=== PATIENT | female | born 1995 | race Caucasian/White ===

== ENCOUNTER 2019-04-03 08:11 | Emergency (ER) | payer OTHER, SELFPAY ==
--- NOTE | 2019-04-03 08:13 | ED.GENADULT ---
HPI - General Adult General Chief complaint: Upper Respiratory Infection Stated complaint: Sore Throat Time Seen by Provider: 04/03/19 08:13 Source: patient Mode of arrival: ambulatory Limitations: no limitations History of Present Illness HPI narrative: 23-year-old female patient presents the [facility] with complaints of cold symptoms and sore throat for the past week and half. Patient states that yesterday she noticed that her left eye was also starting to itch and get some red as well as having some gunk . Coming from the left eye. Patient denies any fevers that she is aware of. Patient denies any ear pain but states she has had a little bit of a stuffy and runny nose, sore throat denies any coughing, chest pain or shortness of breath. Patient denies any abdominal pain, nausea, vomiting or diarrhea. Patient states that she was taking [id number] Mucinex for her symptoms however she states that it was causing her to puke up mucus so she stopped taking it. Patient states otherwise she is just been using hot tea. Patient states that she did get a flu shot this year. Denies smoking cigarettes but does admit to vaping and smoking marijuana every once in a while. Patient denies or breast-feeding at this time. Related Data Allergies Allergy/AdvReac Type Severity Reaction Status Date / Time Penicillins Allergy Other Verified 04/03/19 08:45 Review of Systems Review of Systems: Narrative: CONSTITUTIONAL: Denies fever, chills, or sweats. EYES: Denies visual changes, positive left eye redness and discharge. ENT: Positive rhinorrhea, congestion, sore throat, denies otalgia. CARDIOVASCULAR: Denies chest pain, palpitations, or edema. RESPIRATORY: Denies cough or dyspnea. GASTROINTESTINAL: Denies abdominal pain, nausea, vomiting, or diarrhea. GENITOURINARY: Denies dysuria or hematuria. SKIN: Denies rash or itching. MUSCULOSKELETAL: Denies back pain, joint pain, or myalgia. NEUROLOGIC: Denies headache, numbness, or weakness. PSYCHIATRIC: Denies anxiety or depression. PMFSH Comments At the time of my signature I agree with nursing past medical history, surgical, social, and family history. There is no relevant family history pertinent to the presenting complaint. Exam Narrative: Exam Narrative: GENERAL: Well-appearing, well-nourished, and in no acute distress. HEAD: Normocephalic, atraumatic. No tenderness noted to frontal maxillary sinuses on palpation. EYES: PERRLA and EOM intact without limitation or complaint of pain, no periorbital soft tissue swelling ,no erythema, warmth or tenderness noted, no obvious deformity. No crusting or swelling.no tearing or draining.No photophobia. No nystagmus No FB or lesion on lid eversion. Corneas grossly clear, no obvious FB or hyphens/hypopyon. Erythemic injection to sclera on the left eye. Lids and lashes clear. ENT: Nares with erythema and edema noted bilaterally, no rhinorrhea or epistaxis. Mucous membranes moist. Posterior pharynx with slight erythema but no tonsil enlargement no exudates or lesions present. NECK: Supple. No lymphadenopathy CHEST: Clear to auscultation. No respiratory distress. Patient able talk in clear complete sentences. No tripoding noted. HEART: Regular rate and rhythm. No murmur heard. Normal peripheral pulses. ABDOMEN: Soft, nontender, nondistended, normal active bowel sounds. EXTREMITIES: Normal range of motion. No edema. SKIN: Warm, dry, no rash. NEURO: No focal deficits. Alert and oriented x3. Course Reevaluation(s) Reevaluation #1: Notify patient that her bedside strep test today is negative. Discussed with her that this is most likely viral and will take some time to run its course. Discussed with her as far as the sore throat she can take hot tea and honey, warm salt water gargles and use a humidifier in her room to help alleviate the throat pain as well as take Tylenol and ibuprofen. Discussed with her that we will also place her on an antihistamine a
[2019-04-03 08:24] VITALS: BP 139/89; PULSE 95; RESP 16; TEMP 36.4; O2SAT 100
== END 2019-04-03 08:56 | disposition home or self-care (01) ==
PROVIDERS: Emergency Provider Nurse Practitioner Family
DX: J06.9 Acute upper respiratory infection, unspecified (principal); H10.32 Unspecified acute conjunctivitis, left eye; J02.9 Acute pharyngitis, unspecified
CPT/HCPCS: 87081; 87880; 99203; G0463

== ENCOUNTER 2021-08-11 11:18 | Emergency (ER) | payer OTHER, SELFPAY ==
[2021-08-11 11:30] VITALS: BP 127/84; PULSE 94; RESP 20; TEMP 36.9; O2SAT 100
--- NOTE | 2021-08-11 11:50 | ED.DENTAL ---
HPI - Dental/Oral General Chief complaint: Dental/Oral Stated complaint: Gum Pain Time Seen by Provider: 08/11/21 11:51 Source: patient, RN notes reviewed and old records reviewed Mode of arrival: ambulatory Limitations: no limitations History of Present Illness HPI Narrative: 26-year-old female who is 7 weeks approximately complains of left lower dental pain. Patient states her wisdom tooth have been removed. That post her molar has been repaired twice. States she tried getting in with her dentist but they were out for the week. Denies fevers. MD Complaint: tooth pain Teeth map: 1. Surrounding tissue erythema, swelling Related Data Home Medications Medication Instructions Recorded Confirmed 1 tab-cap PO DAILY 08/11/21 08/11/21 Allergies Allergy/AdvReac Type Severity Reaction Status Date / Time Penicillins Allergy Other Verified 08/11/21 11:37 Review of Systems Review of Systems: All systems reviewed & are unremarkable except as noted in HPI and below Constitutional: Constitutional: Reports no additional constitutional complaints, Denies chills and Denies fever(s) Eyes: Eyes: Reports no additional eye complaints ENT: Reports as per HPI Comments: Dental pain, left lower Cardiovascular: Cardiovascular: Reports no additional cardiovascular complaints, Denies chest pain and Denies dyspnea Respiratory: Respiratory: Reports no additional respiratory complaints, Denies cough and Denies dyspnea Musculoskeletal: Musculoskeletal: Reports no additional musculoskeletal complaints Integumentary/Breasts: Skin/Breast: Reports system reviewed and no additional complaints, except as docu Neurologic: Reports system reviewed and no additional complaints, except as documented Psychiatric: Psychiatric: Reports no additional psychiatric complaints Allergic/Immunologic: Allergic/Immunologic: Reports no additional allergic/immunologic complaints [facility] Past Medical History Medical History (Updated 08/11/21 @ 17:31 by Dee Raines APRN) Patient denies medical problems Surgical History Surgical History (Updated 08/11/21 @ 17:31 by Dee Raines APRN) No history of previous surgery Social History Social History (Updated 08/11/21 @ 17:32 by Dee Raines APRN) Living arrangements: with family Gender identity (if verbalized by the patient): Female Comments At the time of my signature, I reviewed and agree with the nursing past medical, surgical, social, and family history. There is no relevant family history pertinent to the patient complaint. Exam Const: General: healthy appearing, no acute distress and alert Nutritional Appearance: well nourished Orientation/consciousness: patient oriented x3 Limitations: no limitations HENMT: Head: normal to inspection Ears: external ears normal, TM's normal bilaterally and EAC's normal General nose exam: Normal external nose present and Normal nasal mucous membranes and turbinates present Face and sinus: normal facial exam Mouth: Yes Normal oral and palatal mucosa present Teeth and gingiva: abnormal tooth and associated gingiva lower left third molar tender, with associated gingival edema and with associated gingival fluctuance (Posterior to the tooth, tooth has had multiple caries and repair) Throat: posterior oropharynx normal, tonsils normal and uvula midline Eyes: Conjunctivae: conjunctivae normal Pupils: Equal, round and reactive pupils present Neck: Neck: normal visual inspection, no lymphadenopathy and no meningeal signs Chest: Chest palpation & inspection: normal inspection of the chest Resp: Effort & Inspection: normal respiratory effort Auscultation: clear to auscultation bilaterally Cardio: Rate: regular rate Rhythm: regular rhythm Skin: General skin exam: normal color Rashes: no rashes Wounds: no wounds Neuro: General: patient oriented x3, moves all extremities, no meningeal signs and no focal motor deficits Cr
== END 2021-08-11 12:06 | disposition home or self-care (01) ==
PROVIDERS: Emergency Provider Nurse Practitioner; PCP Student in an Organized Health Care Education/Training Program
DX: O99.611 Diseases of the digestive system complicating pregnancy, first trimester (principal); Z3A.01 Less than 8 weeks gestation of pregnancy; K04.7 Periapical abscess without sinus
CPT/HCPCS: 99213; G0463

== ENCOUNTER 2021-10-17 16:11 | Outpatient (CLI) | payer OTHER, SELFPAY ==
[2021-10-17 16:45] LABS: Basophils Percent Auto 0.3 % (0.2-1.2); Eosinophils Absolute Auto 0.2 K/mm3 (0-0.3); Eosinophils Percent Auto 1.7 % (0-4.4); Hematocrit 37.5 % (37.0-47.0); Hemoglobin 12.7 g/dL (12.0-15.0); Immature Granulocyte Absolute 0.05 K/mm3 (0.00-0.031); Immature Granulocyte Percent A 0.5 % (0-0.5); Lymphocytes Absolute Auto 1.74 K/mm3 (0.9-3.2); Lymphocytes Percent Auto 18.3 % (18.3-44.2); Mean Corpuscular HGB Conc 33.9 g/dl (32-36); Mean Corpuscular Hemoglobin 32.2 pg (26-34); Mean Corpuscular Volume 94.9 fl (80-100); Mean Platelet Volume 10.8 fl (7.4-10.4); Monocytes Absolute Auto 0.5 K/mm3 (0.1-0.6); Monocytes Percent Auto 4.9 % (2.6-8.5); Neutrophils Absolute Auto 7.1 K/mm3 (1.3-6.7); Neutrophils Percent Auto 74.3 % (45.5-73.1); Platelet Count Result 217 k/mm3 (150-375); Red Blood Count 3.95 M/mm3 (4.2-5.4); Red Cell Distribution Width 12.9 % (11.5-14.5); White Blood Count 9.5 K/mm3 (4.5-10.0)
[2021-10-17 17:24] LABS: HIV 1/2 Ab P24 Ag Result Negative (Negative)
[2021-10-17 18:22] LABS: Hepatitis B Surface Antigen Negative (Negative); Rubella IgG Antibody 2.4 IU/ML
[2021-10-20 07:51] LABS: Rapid Plasma Reagin Non-Reactive (NonReactive)
[2021-10-22 13:32] LABS: CMV IgG Antibody <0.60 U/mL (<0.60)
== END 2021-10-17 16:12 | disposition home or self-care (01) ==
LOC: ANHLAB 16:13
PROVIDERS: PCP Student in an Organized Health Care Education/Training Program; Visit Provider Obstetrics & Gynecology
DX: N94.89 Other specified conditions associated with female genital organs and menstrual cycle (principal)
CPT/HCPCS: 36415; 84702; 85025; 86592; 86644; 86703; 86747; 86762; 86787; 86850; 86900; 86901; 87086; 87088; 87340; G0432

== ENCOUNTER 2022-01-27 08:16 | Outpatient (CLI) | payer OTHER, SELFPAY ==
[2022-01-27 09:53] LABS: Basophils Percent Auto 0.4 % (0.2-1.2); Eosinophils Absolute Auto 0.1 K/mm3 (0-0.3); Eosinophils Percent Auto 1.1 % (0-4.4); Hematocrit 36.6 % (37.0-47.0); Hemoglobin 12.2 g/dL (12.0-15.0); Immature Granulocyte Absolute 0.06 K/mm3 (0.00-0.031); Immature Granulocyte Percent A 0.7 % (0-0.5); Lymphocytes Absolute Auto 1.34 K/mm3 (0.9-3.2); Lymphocytes Percent Auto 14.9 % (18.3-44.2); Mean Corpuscular HGB Conc 33.3 g/dl (32-36); Mean Corpuscular Hemoglobin 30.8 pg (26-34); Mean Corpuscular Volume 92.4 fl (80-100); Mean Platelet Volume 10.9 fl (7.4-10.4); Monocytes Absolute Auto 0.4 K/mm3 (0.1-0.6); Neutrophils Absolute Auto 7.1 K/mm3 (1.3-6.7); Neutrophils Percent Auto 78.9 % (45.5-73.1); Platelet Count Result 178 k/mm3 (150-375); Red Blood Count 3.96 M/mm3 (4.2-5.4); Red Cell Distribution Width 12.9 % (11.5-14.5)
[2022-01-27 10:04] LABS: Glucose 1 Hour PP 50gm Dose 106 mg/dL
== END 2022-01-27 08:17 | disposition home or self-care (01) ==
LOC: ANHLAB 08:17
PROVIDERS: PCP Student in an Organized Health Care Education/Training Program; Visit Provider Obstetrics & Gynecology
DX: Z34.90 Encounter for supervision of normal pregnancy, unspecified, unspecified trimester (principal)
CPT/HCPCS: 36415; 82947; 85025

== ENCOUNTER 2022-02-13 10:51 | Outpatient (RCR) | payer OTHER, SELFPAY ==
[2022-02-13 11:41] VITALS: BP 131/84; PULSE 109
== END 2022-04-04 07:46 | disposition home or self-care (01) ==
LOC: ANHOBOP 10:51
PROVIDERS: PCP Student in an Organized Health Care Education/Training Program; Visit Provider Obstetrics & Gynecology
DX: O36.8130 Decreased fetal movements, third trimester, not applicable or unspecified (principal); Z3A.35 35 weeks gestation of pregnancy
CPT/HCPCS: 59025

== ENCOUNTER 2022-03-15 14:38 | Observation (INO) | payer OTHER, SELFPAY ==
--- NOTE | 2022-03-15 17:14 | OBADM ---
This patient, Selina Mariee, admitted to the OB room Labor/Delivery/Recovery 107 for observation. Patient/family oriented to hospital policies and general routines including ID bracelet, bed and alarms, visiting hours, pain management, procedures, bathroom and other care routines, personal items, smoking policy, room service/diet, and visiting hours. Patient/Family are encouraged to report perceived risks to care and to ask questions if they do not understand what they are told or what they should do.
--- NOTE | 2022-03-17 10:56 | PM.OBTRLD ---
OB - Triage/Final Diagnosis Visit Information Date of evaluation: 03/15/22 Reason for evaluation: decreased movement Comments/Additional reasons for admission: I have assessed the risk for this patient, Selina Mariee, and determined that she would benefit from observation care.
== END 2022-03-15 17:24 | disposition home or self-care (01) ==
PROVIDERS: Admitting Provider Student in an Organized Health Care Education/Training Program; PCP Student in an Organized Health Care Education/Training Program; Visit Provider Student in an Organized Health Care Education/Training Program
DX: O36.8130 Decreased fetal movements, third trimester, not applicable or unspecified (principal); Z3A.39 39 weeks gestation of pregnancy
CPT/HCPCS: G0378; G0379

== ENCOUNTER 2022-03-18 01:33 | Inpatient (IN) | payer OTHER, SELFPAY ==
[2022-03-18] VITALS (142 sets, daily range): BP systolic 102–154; BP diastolic 66–120; PULSE 56–142; RESP 16; TEMP 36.1–36.9; O2SAT 81–100; BMI 27.0
--- NOTE | 2022-03-18 02:07 | LDADM ---
This patient, Selina Mariee, was admitted to Labor/Delivery/Recovery 105 on 03/18/22 at 01:33. Plans for labor, pain management and were discussed with patient. Patient/family oriented to hospital policies and general routines including ID bracelet, bed and alarms, visiting hours, pain management, procedures, bathroom and other care routines, personal items, smoking policy, room service/diet and guest tray routines, infant security routines, and visiting hours. Patient/Family are encouraged to report perceived risks to care and to ask questions if they do not understand what they are told or what they should do. See OBIX for further documentation.
[2022-03-18 02:25] LABS: Basophils Percent Auto 0.2 % (0.2-1.2); Eosinophils Absolute Auto 0.1 K/mm3 (0-0.3); Eosinophils Percent Auto 0.9 % (0-4.4); Hematocrit 34.7 % (37.0-47.0); Hemoglobin 11.7 g/dL (12.0-15.0); Immature Granulocyte Absolute 0.06 K/mm3 (0.00-0.031); Immature Granulocyte Percent A 0.6 % (0-0.5); Lymphocytes Percent Auto 20.8 % (18.3-44.2); Mean Corpuscular HGB Conc 33.7 g/dl (32-36); Mean Corpuscular Hemoglobin 30.6 pg (26-34); Mean Corpuscular Volume 90.8 fl (80-100); Mean Platelet Volume 11.4 fl (7.4-10.4); Monocytes Absolute Auto 0.6 K/mm3 (0.1-0.6); Monocytes Percent Auto 5.6 % (2.6-8.5); Neutrophils Absolute Auto 7.3 K/mm3 (1.3-6.7); Neutrophils Percent Auto 71.9 % (45.5-73.1); Platelet Count Result 205 k/mm3 (150-375); Red Blood Count 3.82 M/mm3 (4.2-5.4); Red Cell Distribution Width 13.7 % (11.5-14.5); White Blood Count 10.1 K/mm3 (4.5-10.0)
[2022-03-18] MEDS: LACTATED RINGERS 1,000 ML 125 ML IV CONT ×3 (03:52→07:29)
--- NOTE | 2022-03-18 04:11 | WPDANESEPP ---
Anes - Eval Pre Procedure Procedure: labor epidural Date/Time: 03/18/22 04:11 Pre Op Diagnosis: SROM Patient Data Age: 26 Gender: F Height: 1.8 m Weight: 88 kg Last Vital Signs Temp 36.1 C L 03/18/22 02:19 Pulse 73 03/18/22 04:01 BP 140/92 H 03/18/22 04:01 Pulse Ox 99 03/18/22 04:08 O2 Del Method Room Air 03/18/22 02:06 Allergies Allergy/AdvReac Type Severity Reaction Status Date / Time Penicillins Allergy Unknown Other Verified 03/16/22 14:10 Home Medications Medication Instructions Recorded Confirmed Type 1 tab-cap PO DAILY 08/11/21 03/16/22 History Laboratory Tests 03/18/22 03/18/22 03/18/22 02:17 02:17 02:17 WBC 10.1 K/mm3 H K/mm3 (4.5-10.0) RBC 3.82 M/mm3 L M/mm3 (4.2-5.4) Hgb 11.7 g/dL L g/dL (12.0-15.0) Hct 34.7 % L % (37.0-47.0) MCV 90.8 fl fl (80-100) MCH 30.6 pg pg (26-34) MCHC 33.7 g/dl g/dl (32-36) RDW 13.7 % % (11.5-14.5) Plt Count 205 k/mm3 k/mm3 (150-375) MPV 11.4 fl H fl (7.4-10.4) Immature Gran % (Auto) 0.6 % H % (0-0.5) Neut % (Auto) 71.9 % % (45.5-73.1) Lymph % (Auto) 20.8 % % (18.3-44.2) Chester % (Auto) 5.6 % % (2.6-8.5) Eos % (Auto) 0.9 % % (0-4.4) Baso % (Auto) 0.2 % % (0.2-1.2) Lymph # (Auto) 2.10 K/mm3 K/mm3 (0.9-3.2) Chester # (Auto) 0.6 K/mm3 K/mm3 (0.1-0.6) Eos # (Auto) 0.1 K/mm3 K/mm3 (0-0.3) Baso # (Auto) 0.0 K/mm3 K/mm3 (0.0-0.1) Abs Immat Gran (auto) 0.06 K/mm3 H K/mm3 (0.00-0.031) Absolute Neuts (auto) 7.3 K/mm3 H K/mm3 (1.3-6.7) Absolute Nucleated RBC 0.0 K/mm3 K/mm3 (0.0-0.012) Nucleated RBC % 0.0 % % (0.0-0.2) RPR Pending Blood Type A Positive Antibody Screen Negative Patient hx anesthesia problems: none Family hx anesthesia problems: none Results Review: All pre-operative results and documents have been reviewed as part of the pre-operative evaluation. [facility] Past Medical History Medical History Patient denies medical problems Suppression of menstruation Surgical History Surgical History No history of previous surgery Family History Family History Mother Hypertension Father Hypertension Grandparent Hypertension Grandparent Hypertension Social History Social History Smoking status: Never smoker Tobacco type: e-cigarettes/vaping Second hand tobacco smoke exposure: No Alcohol intake: never Substance use: never Substance use type: does not use Lack of Transportation: No Lack of Food: Never True Current Housing: I Have Housing Concerned About Future Housing: No Difficulty Paying Gas/Electric Bills: No Difficulty Paying for Meds: No Currently Unemployed: No Education: Bachelor's Degree Difficulty w/ Childcare or Family Care: No Additional living arrangements comments: Additional occupation/education comments: student Gender identity (if verbalized by the patient): Female Sexual Orientation (if Verbalized by the Patient): Straight or Heterosexual Spiritual care concerns: No Exam Day of Procedure 03/18/22 04:11 Patient weight: overweight Heart: regular rate and rhythm Lungs: normal air movement Airway: Mallampati scale Neurological: alert and oriented
[2022-03-18] MEDS: OXYTOCIN 30 UNITS/NS 500 ML 30 UNITS/500 ML BAG IV CONT (05:34)
[2022-03-18] MEDS: OXYTOCIN 30 UNITS/NS 500 ML 30 UNITS/500 ML BAG 125 UNITS IV CONT (10:18)
--- NOTE | 2022-03-18 10:44 | WPDHPUPDATE1 ---
History and Physical Update Update Date/Time: 03/18/22 10:44 History and Physical has been reviewed, including an updated exam of the patient. There are NO changes in the patient's condition. Risks, benefits, and alternatives have been discussed and questions answered. Patient agrees to proceed with procedure.
--- NOTE | 2022-03-18 10:44 | WPDOBADMIT ---
Obstetrics - Admit Note Admission Note: record reviewed. No pertinent additions to the history and/or any subsequent changes in the physical findings that are not consistent with the expected course of the were found. Additions to the history and/or subsequent changes in the physical findings follow. None.
--- NOTE | 2022-03-18 10:44 | PM.OBPRVD ---
OB - Delivery Note Procedure Delivery augmentation: Pitocin Delivery monitor: External FHT and External Uterine Route of delivery: Episiotomy description: None Laceration Description: Periurethral Delivery repair: chromic Specimen: No Quantitative Blood Loss (ml): 350 Anesthesia type: Epidural Disposition: Floor Complications: none Narrative: patient prepped and draped in usual manner for this procedure. Maternal expulsive efforts readily delivered vertex over intact perineum. Rest of baby was delivered without difficulty cord was clamped and cut and placenta delivered spontaneously. Cervix vagina vulva were inspected with a right periurethral laceration which was oozing and rendered hemostatic with a [id number] of 2-0 chromic suture. At this point the procedure was considered terminated in the immediate postoperative condition of mother and baby were both excellent. Baby Weeks of gestation at delivery: 39 Infant gender: Female Weight (pounds): 7 Weight (ounces): 7 presentation: vertex Placenta delivery description: Spontaneous Cord Vessel Description: 3 Vessels score one minute: 9 score five minutes: 9 AMG Delivery Billing Delivery Delivery: Delivery Charge
[2022-03-18] MEDS: WITCH HAZEL 40 PADS 1 PAD TOPICAL (11:49)
[2022-03-18] MEDS: BENZOCAINE 20% AER SPR (*SP) 56 GM CAN 1 SPRAY TOPICAL (11:49)
[2022-03-18 12:38] LABS: Rapid Plasma Reagin Non-Reactive (NonReactive)
--- NOTE | 2022-03-18 13:13 | PC.NURSE ---
[id number] Introductions were made, then consulted with patient to assess needs related to . Mother led the conversation with her?plans to feed?her infant and the?experience so far. Resources provided for inpatient (call light) and outpatient services with office number on the feeding sheet and mom/baby guide. Mother voiced understanding of information, will call if there is a request for assistance and was receptive to learning and practicing skin to skin with stimulating with massage touch. Mother states she will call if infant doesn't wake to breastfeed or is painful.
--- NOTE | 2022-03-18 14:07 | PC.NURSE ---
Patient transferred to post room #278 via (w/c). Support person present. Oriented to unit, room, information board, rooming in, admission packet and security measures. Patient verbalizes understanding.
--- NOTE | 2022-03-18 16:43 | PC.NURSE ---
[id number] Introductions were made, then consulted with patient to assess needs related to . Mother works well with her with encouragement and education. Encouraged understanding of the benefits of skin to skin (demonstrating unwrapping infant and placing upright on her chest), stimulating with massage touch, changing positions to encourage wakefulness, how to watch for early feeding cues, responsive feeding, feeding on demand (aiming for 8-12 times in 24 hours, about every 2-3 hours), milk production, building/maintaining a milk supply, duration of feeding, signs of adequate intake/output and how to record on the feeding sheet. Mother is demonstrating education. is sleepy and reluctant at this time less than 6 hours old. Reviewed good handwashing when or touching the breast/nipples to prevent infection. Mother was taught to hand express colostrum from her breast and the was encouraged to swallow 1/4 tsp spoon fed colostrum. Infant held the colostrum in he mouth and was gently encouraged and given time to swallow. Resources used to facilitate learning were used with the demonstrating, tool, mom and baby guide. We discussed the difference between a sleepy less than 24 hours old vs the behavior typical of a infant greater than 24 hours. Mother voiced understanding of skin to skin, stimulating with massage touch, responsive feedings, hand expressed colostrum, talking to infant to encourage if it has been 2 -2.5 hours since the start of the last , to call if infant does not latch, or if there is discomfort with . Resources provided for inpatient (using the call light)/outpatient with the office number on the feeding sheet and the mom/baby guide. Parents voiced understanding of information, demonstrated learning and will call if there is a request for assistance. Reported to primary RN.
[2022-03-18] MEDS: ACETAMINOPHEN 325 MG TABLET 650 MG PO (20:00)
[2022-03-19] MEDS: IBUPROFEN 600 MG TABLET PO (04:10)
[2022-03-19 05:21] LABS: Hematocrit 33.6 % (37.0-47.0); Hemoglobin 11.1 g/dL (12.0-15.0)
[2022-03-19 08:00] VITALS: PULSE 81; RESP 16; O2SAT 99
--- NOTE | 2022-03-19 08:09 | PM.OBDSVD ---
DS: Admitting Diagnosis Discharge Date 03/19/2022 Admitting Diagnosis OB - DS: Summary OB Procedures : None OB Procedures Intrapartum: Spontaneous Vag Delivery OB Procedures: : None Time Spent with Patient Time attestation: Total time spent providing and/or coordinating discharge services: DS: Data Data Completed and Pending Labs on day of discharge: Labs from last 24 hours 03/19/22 03/18/22 04:17 02:17 Hgb 11.1 L Hct 33.6 L RPR Non-reactive Discharge Plan Discharge Discharging Clinician: Jackson Trinh Patient Disposition: Home, Self-Care Activity: as tolerated Diet: as tolerated Patient Instructions: Antibiotic Form Stand Alone Forms: General Discharge Information Follow-up/Referrals: Jackson Trinh MD [Physician] - 3 Weeks Discharge Medications: New ibuprofen 600 mg Tablet 600 mg PO Q6H PRN (Reason: Cramping) Qty: 30 0RF Continued 1 tab-cap PO DAILY Date of admission: 03/18/22 01:33 Primary Care Provider: Joao,Angelo Admitting Provider: Jackson Trinh Attending physician on admission: Jackson Trinh Condition: Stable
[2022-03-19 08:10] VITALS: BP 124/81; PULSE 81; RESP 16; TEMP 36.8; O2SAT 99
[2022-03-19] MEDS: ACETAMINOPHEN 325 MG TABLET 650 MG PO (10:30)
[2022-03-19] MEDS: MULTIVIT/MIN/PREN/FOL AC/IRON TABLET 1 TAB PO (10:32)
[2022-03-19] MEDS: MEASLES,MUMPS,RUBELLA VACCINE 0.5 ML VIAL SUB-Q (10:33)
--- NOTE | 2022-03-19 12:37 | PC.NURSE ---
1000-Patient viewed the discharge video Mother & Baby Care, The First Two Weeks . Patient was given the opportunity and encouraged to ask questions. Patient verbalized understanding of information shared and has been given the mother/baby guide for home reference.
--- NOTE | 2022-03-19 15:36 | PC.NURSE ---
[id number] Mother led the conversation with her experience and plan to feed her so far and her ability to independently latch optimally without discomfort. Reminded parents to use good handwashing technique to prevent infection. Mother is feeding appropriately for growth of and understands stimulating to eat if needed. Infant has had appropriate feedings in the last 24 hours meets the outcomes for weight, output and jaundice at this time. Mother states she is confident to continue effectively her infant at home, when to call for assistance and denies any additional assistance or education at this time. Reinforced understanding of milk production, transition of milk, signs of adequate intake, transition of stool, prevention/relief of engorgement, responsive watching for feeding cues, the different methods of stimulating infant to breastfeed 2-3 hours after the start of the last feeding, community resources, medication information reviewed per [facility] and when to call a provider using the resource of the mom and baby guide/[facility] website. Discussed and answered mothers questions. Mother voiced understanding of the education shared. Reported to the primary RN.
[2022-03-20 09:35] VITALS: BP 139/77; PULSE 77; RESP 18; TEMP 36.8; O2SAT 100
== END 2022-03-19 12:35 | disposition home or self-care (01) | DRG 807 ==
LOC: ANHLDR 01:55 → ANHOB2 12:22
PROVIDERS: Admitting Provider Obstetrics & Gynecology; PCP Student in an Organized Health Care Education/Training Program; Visit Provider Obstetrics & Gynecology
DX: O71.82 Other specified trauma to perineum and vulva (principal); Z37.0 Single live birth; Z3A.39 39 weeks gestation of pregnancy
CPT/HCPCS: 36415; 85014; 85018; 85025; 86592; 86850; 86900; 86901; 90710; A9270; J2590; J2795; J7120

== ENCOUNTER 2023-06-09 09:16 | Emergency (ER) | payer OTHER, SELFPAY ==
[2023-06-09 09:40] VITALS: BP 129/85; PULSE 110; RESP 20; TEMP 36.7; O2SAT 100
[2023-06-09 09:42] VITALS: BP 129/85; PULSE 113; RESP 20; TEMP 36.7; O2SAT 100
[2023-06-09] MEDS: SODIUM CHLORIDE 0.9% IV 1,000 ML 999 ML IV CONT (10:12)
[2023-06-09] MEDS: ONDANSETRON INJ 4 MG/2 ML VIAL IV PUSH (10:12)
[2023-06-09 10:19] LABS: Basophils Percent Auto 0.1 % (0.2-1.2); Hematocrit 38.1 % (37.0-47.0); Hemoglobin 13.5 g/dL (12.0-15.0); Immature Granulocyte Absolute 0.04 K/mm3 (0.00-0.031); Immature Granulocyte Percent A 0.4 % (0-0.5); Lymphocytes Absolute Auto 0.41 K/mm3 (0.9-3.2); Lymphocytes Percent Auto 4.1 % (18.3-44.2); Mean Corpuscular HGB Conc 35.4 g/dl (32-36); Mean Corpuscular Volume 90.3 fl (80-100); Mean Platelet Volume 11.1 fl (7.4-10.4); Monocytes Absolute Auto 0.3 K/mm3 (0.1-0.6); Neutrophils Absolute Auto 9.3 K/mm3 (1.3-6.7); Neutrophils Percent Auto 92.4 % (45.5-73.1); Platelet Count Result 192 k/mm3 (150-375); Red Blood Count 4.22 M/mm3 (4.2-5.4); Red Cell Distribution Width 13.2 % (11.5-14.5); White Blood Count 10.1 K/mm3 (4.5-10.0)
--- NOTE | 2023-06-09 10:23 | ED.GENADULT ---
HPI - General Adult General Chief complaint: Nausea/Vomiting/Diarrhea Stated complaint: , need iv fluids Time Seen by Provider: 06/09/23 09:43 History of Present Illness HPI narrative: Patient is a 27-year-old female who presents ER with the eye duration. She has had nausea and vomiting as well as diarrhea worsening over last 3 days. She reports she is not urinating now because of her dehydration. No syncope. No lower abdominal cramping. No vaginal bleeding or vaginal discharge. No dysuria. She has had no antiemetics at home. She is 16 weeks in gestation. She does report that her circuit court magistrate prescribed some antiemetics today that she will order picker/assembler after being evaluated in the ER. Related Data Home Medications Medication Instructions Recorded Confirmed 1 tab-cap PO DAILY 08/11/21 05/18/23 Allergies Allergy/AdvReac Type Severity Reaction Status Date / Time Penicillins Allergy Unknown Other Verified 05/18/23 15:31 Review of Systems Review of Systems: All systems reviewed & are unremarkable except as noted in HPI and below Constitutional: Constitutional: Denies chills, Reports fatigue and Denies fever(s) ENT: Reports system reviewed and no additional complaints, except as documented Cardiovascular: Cardiovascular: Reports no additional cardiovascular complaints Respiratory: Respiratory: Reports no additional respiratory complaints Gastrointestinal: Gastrointestinal: Denies abdominal pain, Reports diarrhea, Reports nausea and Reports vomiting Genitourinary: Genitourinary: Reports no additional female genitourinary complaints [facility] Past Medical History Medical History Patient denies medical problems Suppression of menstruation Surgical History Surgical History No history of previous surgery Family History Family History Mother Hypertension Father Hypertension Grandparent Hypertension Grandparent Hypertension Social History Social History Smoking status: Never smoker Tobacco type: e-cigarettes/vaping Second hand tobacco smoke exposure: No Alcohol intake: never Substance use: former Substance use type: marijuana Other substance usage details: stopped when finding out with 1st child Last use: 06/2021 Do You Feel Safe in your Home?: Yes Lack of Transportation: No Lack of Food: Never True Current Housing: I Have Housing Concerned About Future Housing: No Difficulty Paying Gas/Electric Bills: No Difficulty Paying for Meds: No Currently Unemployed: YES Education: Bachelor's Degree Difficulty w/ Childcare or Family Care: No Living arrangements: other Additional living arrangements comments: Occupation/Education: occupation 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 HEAD: Normocephalic, atraumatic. ENT: Mucous membranes moist. Normal appearing posterior oropharynx. NECK: Supple. CHEST: Clear to auscultation. No respiratory distress. HEART: Tachycardic and regular. Normal peripheral pulses. ABDOMEN: Soft, nontender, nondistended. EXTREMITIES: Normal range of motion. No edema. SKIN: Warm, dry, no rash. NEURO: Alert and oriented x3. PSYCH: Normal mood and affect. Course Course Emergency Course: Labs reassuring. Patient feels improved after IV fluid. Tolerating p.o. without issue. She has antiemetics already prescribed. Discharge. Vital Signs Vital signs: Vital Signs Temperature 98.1 F 06/09/23 09:40
[2023-06-09 10:27] LABS: Alanine Aminotransferase 13 U/L (6-35); Albumin Level 3.8 g/dL (3.5-5.1); Alkaline Phosphatase 51 U/L (38-126); Anion Gap 9 mmol/L (4-12); Aspartate Amino Transferase 17 U/L (14-36); Bilirubin,Total 1.2 mg/dL (0.2-1.3); Blood Urea Nitrogen 12 mg/dL (7-17); Calcium 8.7 mg/dL (8.4-10.2); Carbon Dioxide 16 mmol/L (22-30); Chloride 106 mmol/L (98-107); Estimated CRCL calculation 152 ml/min; Estimated Glomerular Filt Rate > 60; Glucose 121 mg/dL (65-110); Potassium 3.6 mmol/L (3.4-5.0); Sodium 131 mmol/L (137-145)
--- NOTE | 2023-06-09 11:22 | PC.NURSE ---
pt reports improvement of symptoms. IV fluids complete.
[2023-06-09 11:57] VITALS: BP 120/82; PULSE 88; RESP 22; O2SAT 100
--- NOTE | 2023-06-09 12:00 | PC.NURSE ---
Pt given jello, saltines, and clear soda
== END 2023-06-09 12:16 | disposition home or self-care (01) ==
PROVIDERS: Emergency Provider Emergency Medicine; PCP Student in an Organized Health Care Education/Training Program
DX: O21.0 Mild hyperemesis gravidarum (principal); Z3A.16 16 weeks gestation of pregnancy
CPT/HCPCS: 36415; 80053; 85025; 96361; 96374; 99284; J2405; J7030

== ENCOUNTER 2023-08-28 08:39 | Outpatient (CLI) | payer OTHER, SELFPAY ==
[2023-08-28 10:13] LABS: Basophils Percent Auto 0.4 % (0.2-1.2); Eosinophils Percent Auto 0.5 % (0-4.4); Hematocrit 33.4 % (37.0-47.0); Hemoglobin 11.3 g/dL (12.0-15.0); Immature Granulocyte Absolute 0.02 K/mm3 (0.00-0.031); Immature Granulocyte Percent A 0.2 % (0-0.5); Lymphocytes Absolute Auto 1.21 K/mm3 (0.9-3.2); Lymphocytes Percent Auto 14.9 % (18.3-44.2); Mean Corpuscular HGB Conc 33.8 g/dl (32-36); Mean Corpuscular Hemoglobin 32.1 pg (26-34); Mean Corpuscular Volume 94.9 fl (80-100); Mean Platelet Volume 10.6 fl (7.4-10.4); Monocytes Absolute Auto 0.3 K/mm3 (0.1-0.6); Neutrophils Absolute Auto 6.5 K/mm3 (1.3-6.7); Platelet Count Result 164 k/mm3 (150-375); Red Blood Count 3.52 M/mm3 (4.2-5.4); Red Cell Distribution Width 12.8 % (11.5-14.5); White Blood Count 8.1 K/mm3 (4.5-10.0)
[2023-08-28 10:21] LABS: Glucose 1 Hour PP 50gm Dose 148 mg/dL
[2023-08-28 11:01] LABS: HIV 1/2 Ab P24 Ag Result Negative (Negative)
[2023-08-28 11:15] LABS: Hepatitis B Surface Antigen Negative (Negative); Rubella IgG Antibody 7.7 IU/ML
[2023-08-30 12:57] LABS: CMV IgG Antibody <0.60 U/mL
[2023-08-30 14:08] LABS: Rapid Plasma Reagin Non-Reactive (NonReactive)
== END 2023-08-28 08:40 | disposition home or self-care (01) ==
PROVIDERS: PCP Student in an Organized Health Care Education/Training Program; Visit Provider Obstetrics & Gynecology
DX: Z34.90 Encounter for supervision of normal pregnancy, unspecified, unspecified trimester (principal); N91.2 Amenorrhea, unspecified
CPT/HCPCS: 36415; 82947; 84702; 85025; 86592; 86644; 86703; 86747; 86762; 86787; 86850; 86900; 86901; 87086; 87340; G0432

== ENCOUNTER 2023-09-02 08:00 | Outpatient (CLI) | payer OTHER, SELFPAY ==
[2023-09-02 08:30] LABS: Glucose Fasting Gestational 100 mg/dL (>/=95)
[2023-09-02 10:28] LABS: Glucose 1 Hour Gest 166 mg/dL (>/=180)
[2023-09-02 10:46] LABS: Glucose 2 Hour Gest 156 mg/dL (>/= 155)
[2023-09-02 12:01] LABS: Glucose 3 Hour Gest 128 mg/dL (>/=140)
== END 2023-09-02 08:01 | disposition home or self-care (01) ==
LOC: ANHLAB 08:03
PROVIDERS: PCP Student in an Organized Health Care Education/Training Program; Visit Provider Obstetrics & Gynecology
DX: R73.09 Other abnormal glucose (principal)
CPT/HCPCS: 36415; 82951; 82952

== ENCOUNTER 2023-11-08 12:21 | Inpatient (IN) | payer OTHER, SELFPAY ==
[2023-11-08] VITALS (57 sets, daily range): BP systolic 75–173; BP diastolic 48–119; PULSE 61–128; RESP 16; TEMP 36.8–37; O2SAT 96–100; BMI 23.1
[2023-11-08 13:02] LABS: Basophils Percent Auto 0.3 % (0.2-1.2); Eosinophils Percent Auto 0.3 % (0-4.4); Hemoglobin 10.4 g/dL (12.0-15.0); Immature Granulocyte Absolute 0.04 K/mm3 (0.00-0.031); Immature Granulocyte Percent A 0.5 % (0-0.5); Lymphocytes Percent Auto 12.6 % (18.3-44.2); Mean Corpuscular HGB Conc 32.5 g/dl (32-36); Mean Corpuscular Hemoglobin 28.3 pg (26-34); Mean Corpuscular Volume 87.2 fl (80-100); Mean Platelet Volume 11.7 fl (7.4-10.4); Monocytes Absolute Auto 0.4 K/mm3 (0.1-0.6); Monocytes Percent Auto 4.5 % (2.6-8.5); Neutrophils Absolute Auto 7.2 K/mm3 (1.3-6.7); Neutrophils Percent Auto 81.8 % (45.5-73.1); Platelet Count Result 168 k/mm3 (150-375); Red Blood Count 3.67 M/mm3 (4.2-5.4); Red Cell Distribution Width 13.4 % (11.5-14.5); White Blood Count 8.7 K/mm3 (4.5-10.0)
[2023-11-08] MEDS: LACTATED RINGERS 1,000 ML 999 ML IV CONT ×2 (13:03→13:43)
--- NOTE | 2023-11-08 13:13 | LDADM ---
This patient, Selina Mariee, was admitted to Labor/Delivery/Recovery 106 on 11/08/23 at 12:21. Plans for labor, pain management and were discussed with patient. Patient/family oriented to hospital policies and general routines including ID bracelet, bed and alarms, visiting hours, pain management, procedures, bathroom and other care routines, personal items, smoking policy, room service/diet and guest tray routines, infant security routines, and visiting hours. Patient/Family are encouraged to report perceived risks to care and to ask questions if they do not understand what they are told or what they should do. See OBIX for further documentation.
[2023-11-08 13:41] LABS: Rapid Plasma Reagin Non-Reactive (NonReactive)
[2023-11-08 13:52] LABS: HIV 1/2 Ab P24 Ag Result Negative (Negative)
--- NOTE | 2023-11-08 14:13 | WPDANESEPP ---
Anes - Eval Pre Procedure Procedure: labor pain management Date/Time: 11/08/23 14:13 Surgeon: Gayathri Preop Diagnosis: pain during labor Pre Op Diagnosis: Labor Patient Data Age: 28 Gender: F Height: 1.8 m Weight: 75.4 kg Last Vital Signs Temp 98.6 F 11/08/23 13:08 Pulse 86 11/08/23 14:11 BP 81/49 L 11/08/23 14:11 Pulse Ox 99 11/08/23 14:11 Allergies Allergy/AdvReac Type Severity Reaction Status Date / Time Penicillins Allergy Unknown Other Verified 11/02/23 14:02 Home Medications Medication Instructions Recorded Confirmed Type 1 tab-cap PO DAILY 08/11/21 10/26/23 History blood-glucose meter,continuous #1 ea 09/07/23 10/26/23 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) Laboratory Tests 11/08/23 12:56 WBC 8.7 K/mm3 (4.5-10.0) RBC 3.67 L M/mm3 (4.2-5.4) Hgb 10.4 L g/dL (12.0-15.0) Hct 32.0 L % (37.0-47.0) MCV 87.2 fl (80-100) MCH 28.3 pg (26-34) MCHC 32.5 g/dl (32-36) RDW 13.4 % (11.5-14.5) Plt Count 168 k/mm3 (150-375) MPV 11.7 H fl (7.4-10.4) Immature Gran % (Auto) 0.5 % (0-0.5) Neut % (Auto) 81.8 H % (45.5-73.1) Lymph % (Auto) 12.6 L % (18.3-44.2) [place] % (Auto) 4.5 % (2.6-8.5) Eos % (Auto) 0.3 % (0-4.4) Baso % (Auto) 0.3 % (0.2-1.2) Lymph # (Auto) 1.10 K/mm3 (0.9-3.2) [place] # (Auto) 0.4 K/mm3 (0.1-0.6) Eos # (Auto) 0.0 K/mm3 (0-0.3) Baso # (Auto) 0.0 K/mm3 (0.0-0.1) Abs Immat Gran (auto) 0.04 H K/mm3 (0.00-0.031) Absolute Neuts (auto) 7.2 H K/mm3 (1.3-6.7) Absolute Nucleated RBC 0.000 K/mm3 (0.0-0.012) Nucleated RBC % 0.0 % (0.0-0.2) RPR Non-reactive (NonReactive) HIV 1&2 Ab/P24 Ag 4thGn Negative (Negative) Blood Type A Positive Antibody Screen Negative Patient hx anesthesia problems: none Family hx anesthesia problems: none Results Review: All pre-operative results and documents have been reviewed as part of the pre-operative evaluation. [facility] Past Medical History Medical History Patient denies medical problems Suppression of menstruation Surgical History Surgical History No history of previous surgery Family History Family History Mother Hypertension Father Hypertension Grandparent Hypertension Grandparent Hypertension Social History Social History Smoking status: Former smoker Tobacco type: e-cigarettes/vaping Second hand tobacco smoke exposure: No Alcohol intake: never Substance use: never Substance use type: marijuana Other substance usage details: stopped when finding out with 1st child Last use: 06/2021 Do You Feel Safe in your Home?: Yes Lack of Transportation: No Lack of Food: Never True Current Housing: I Have Housing Concerned About Future Housing: No Difficulty Paying Gas/Electric Bills: No Difficulty Paying for Meds: No Currently Unemployed: No Education: Bachelor's Degree Difficulty w/ Childcare or Family Care: No Living arrangements: other Additional living arrangements comments: Occupation/Education: occupation 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
[2023-11-08 14:50] LABS: OBXCEM ROM Plus Negative
[2023-11-08] MEDS: OXYTOCIN 30 UNITS/NS 500 ML 30 UNITS/500 ML BAG 999 UNITS IV CONT (15:08)
--- NOTE | 2023-11-08 15:20 | PM.IMHP ---
H&P: HPI History of Present Illness Date/Time: 11/08/23 15:20 Chief Complaint: Contractions Narrative: 28 y/o at 38 weeks presented with contractions starting at 10. She presented in active labor. PNC significant for diet controlled gestational diabetes. GBS neg. Review of Systems Review of Systems: All systems reviewed & are unremarkable except as noted in HPI and below Constitutional: Constitutional: Reports no additional constitutional complaints and Denies headache(s) Eyes: Eyes: Denies spots in vision ENT: Reports system reviewed and no additional complaints, except as documented and Denies headache(s) Cardiovascular: Cardiovascular: Denies chest pain and Denies dyspnea Respiratory: Respiratory: Denies dyspnea Gastrointestinal: Gastrointestinal: Reports no additional gastrointestinal complaints Genitourinary: Genitourinary: Reports amenorrhea Musculoskeletal: Musculoskeletal: Reports no additional musculoskeletal complaints Integumentary/Breasts: Skin/Breast: Denies breast mass and Denies rash Neurologic: Denies headache(s) Psychiatric: Psychiatric: Reports no additional psychiatric complaints [facility] Past Medical History Medical History Patient denies medical problems Suppression of menstruation Surgical History Surgical History No history of previous surgery Family History Family History Mother Hypertension Father Hypertension Grandparent Hypertension Grandparent Hypertension Social History Social History Smoking status: Former smoker Tobacco type: e-cigarettes/vaping Second hand tobacco smoke exposure: No Alcohol intake: never Substance use: never Substance use type: marijuana Other substance usage details: stopped when finding out with 1st child Last use: 06/2021 Do You Feel Safe in your Home?: Yes Lack of Transportation: No Lack of Food: Never True Current Housing: I Have Housing Concerned About Future Housing: No Difficulty Paying Gas/Electric Bills: No Difficulty Paying for Meds: No Currently Unemployed: No Education: Bachelor's Degree Difficulty w/ Childcare or Family Care: No Living arrangements: other Additional living arrangements comments: Occupation/Education: occupation 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 Gender identity (if verbalized by the patient): Female Sexual Orientation (if Verbalized by the Patient): Straight or Heterosexual Spiritual care concerns: No Meds Home Medications and Allergies Home Medications Medication Instructions Recorded Confirmed Type 1 tab-cap PO DAILY 08/11/21 10/26/23 History blood-glucose meter,continuous #1 ea 09/07/23 10/26/23 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) Allergies Allergy/AdvReac Type Severity Reaction Status Date / Time Penicillins Allergy Unknown Other Verified 11/02/23 14:02 Vital Signs Vital Signs - 24 hr 11/08/23 12:37 11/08/23 12:45 11/08/23 13:08 Temperature 98.6 F Pulse Rate 93 85 Blood Pressure 130/92 H 125/87 Pulse Oximetry 11/08/23 13:16 11/08/23 13:30 11/08/23 13:31 Temperature Pulse Rate 78 80 Blood Pressure 126/87 118/82 Pulse Oximetry 98 11/08/23 13:36 11/08/23 13:37 11/08/23 13:41 Temperature Pulse Rate 114 H Blood Pressure 134/119 H Pulse Oximetry 100 96 11/08/23 13:46 11/08/23 13:48 11/08/23 13:50 Temperature Pulse Rate 103 H 82 Blood Pressure 140/84 173/87 H Pulse Oximetry 100 100 11/08/23 13:51 11/08/23 13:51 11/08/23 13:53 Temperature Pulse Rate 79 Blood Pressure 131/66 Pulse Oximetry 100 98 11/08/23 13:55 11/08/23 13:56 11/08/23 13:58 Temperature Pulse Rate 67 75 Blood Pressure 1
--- NOTE | 2023-11-08 15:23 | PM.OBPRVD ---
OB - Vaginal Delivery Note Procedure Delivery date: 11/08/23 Events: Gestational Diabetes (diet controlled) Induction method: None Delivery monitor: External FHT Route of delivery: Episiotomy description: None Laceration Description: None Quantitative Blood Loss (ml): 150 Anesthesia type: Epidural Disposition: Floor Complications: No immediate complications Narrative: She was admitted in active labor. She had epidural placed on request. She had SROM clear. She progressed to complete. She delivered a female infant over intact perineum. Infant's nose and mouth suctioned at perineum. The rest of the infant was delivered with gentle traction. There was cord wrapped around lower leg x 2 manually reduced. Infant vigorously crying on delivery. placed on maternal abdomen. Delayed cord clamping until cord apulsatile, approx 1 min, cord doubly clamped and cut. Baby Date of : 11/08/23 Time of : 15:06 Gestational Age by Date: 38 gender: Female presentation: vertex position: Right Occiput Anterior Placenta delivery description: Spontaneous Cord Vessel Description: 3 Vessels, Reduced (manually), Delayed Cord Clamping and Around Extremity (x2 loose ) score one minute: 9 score five minutes: 9
[2023-11-08] MEDS: OXYTOCIN 30 UNITS/NS 500 ML 30 UNITS/500 ML BAG 125 UNITS IV CONT (15:35)
--- NOTE | 2023-11-08 17:30 | PC.NURSE ---
Patient transferred to post room #283 via wheel chair. Support person present. Oriented to unit, room, information board, rooming in, admission packet and security measures. Patient verbalizes understanding.
--- NOTE | 2023-11-08 17:50 | PC.NURSE ---
Per patient she would like to receive the Tdap vaccine before discharge but does not want the Flu vaccine.
[2023-11-09] MEDS: MULTIVIT/MIN/PREN/FOL AC/IRON TABLET 1 TAB PO (07:24)
[2023-11-09 07:35] VITALS: BP 116/77; PULSE 58; RESP 16; TEMP 36.8; O2SAT 98
--- NOTE | 2023-11-09 07:39 | WPDANLDPN2 ---
Anes-Prog Note L&D Date/Time: 11/09/23 07:39 Comfortable throughout: labor and delivery Neuraxial method: epidural Epidural/Spinal procedure site: clean & non-tender Neuro status: Neuro function grossly intact. Cardiovascular status: normal Respiratory status: normal Airway patency: baseline Mental status: baseline Post-Op hydration status: normal Vital Signs: Last Vital Signs Temp 36.8 C 11/08/23 19:10 Pulse 89 11/08/23 19:10 Resp 16 11/08/23 19:10 BP 125/69 11/08/23 19:10 Pulse Ox 100 11/08/23 14:53 O2 Del Method Room Air 11/08/23 19:10 Pain score (VAS): 0/10 I/O: Intake & Output 11/08/23 11/08/23 11/09/23 15:59 23:59 07:59 Intake Total 666 100 Output Total 350 Balance 316 100 Post-procedural complaints: none Patient feedback: Patient satisfied with anesthetic care.
--- NOTE | 2023-11-09 08:50 | PC.NURSE ---
0850: Introductions were made, then consulted with patient to assess needs related to . Mother led the conversation with her?plans to feed?her infant and the?experience so far. Encouraged understanding of the benefits of skin to skin (demonstrating unwrapping infant and placing upright on her chest), stimulating with massage touch, changing positions to encourage wakefulness, how to watch for early feeding cues, responsive feeding, feeding on demand (aiming for 8-12 times in 24 hours, about every 2-3 hours), milk production, building/maintaining a milk supply, duration of feeding, signs of adequate intake/output and how to record on the feeding sheet. Mother works well with her with encouragement and education. Reviewed positioning and ear, shoulder, hip alignment, supporting the breast to facilitate a deep latch, asymmetrical latch (off-center), leading with the chin with a big, open, wide gape and body close to mother. was sleepy and despite repeated attempts would not open or attempt to latch. We discussed sleepy baby in the first 24 hours of life and that attempts are ok. Mom will take a break and try again in an hour, or if baby gives any feeding cues at any time. Mother voiced understanding of skin to skin, stimulating with massage touch, responsive feedings, hand expressed colostrum, talking to infant to encourage if it has been 2 -2.5 hours since the start of the last , to call if infant does not latch, or if there is discomfort with . We discussed her previous experience, and she feels that she didn't have the right type of milk for her first baby. She feels it was too thin and once she changed to formula everything changed and baby was much happier. We talked about how each experience is different and there isn't a reason to think she won't produce exactly what her baby needs this time. Resources used for education were facilitated with the Inpatient/outpatient resources provided, name written on the communication board, and the mom/baby guide. Parents voiced understanding of information, demonstrated learning and will call if there is a request for assistance. Reported to the Primary RN. 0950: Mom called out because she attempted to feed again and still can't get baby to open her mouth or wake up. Mom expressed some drops of colostrum into baby's mouth. She will attempt again when baby gives any feeding cues, or in another hour. Reported to primary RN.
[2023-11-09] MEDS: TETANUS,DIPHTHERIA,AC PERTUSSIS ADULT (0.5 ML) BOOSTRIX IM (08:51)
[2023-11-09] MEDS: MEASLES,MUMPS,RUBELLA VACCINE 0.5 ML VIAL (08:52)
--- NOTE | 2023-11-09 10:43 | P.DS_ITS ---
DS: Admitting Diagnosis Discharge Date 11/09/2023 Admitting Diagnosis pregnanchy DS: Discharge Diagnosis Discharge Diagnosis (1) , delivered: Code(s): O80 - Encounter for full-term uncomplicated delivery Status: Acute OB - DS: Summary OB Procedures : None OB Procedures Intrapartum: Spontaneous Vag Delivery OB Procedures: : None Peripartum Data Laceration Description: None Episiotomy description: None Time Spent with Patient Time attestation: Total time spent providing and/or coordinating discharge services: DS: Data Data Completed and Pending Labs on day of discharge: Labs from last 24 hours 11/08/23 11/08/23 12:56 12:53 WBC 8.7 RBC 3.67 L Hgb 10.4 L Hct 32.0 L MCV 87.2 MCH 28.3 MCHC 32.5 RDW 13.4 Plt Count 168 MPV 11.7 H Immature Gran % (Auto) 0.5 Neut % (Auto) 81.8 H Lymph % (Auto) 12.6 L [place] % (Auto) 4.5 Eos % (Auto) 0.3 Baso % (Auto) 0.3 Lymph # (Auto) 1.10 [place] # (Auto) 0.4 Eos # (Auto) 0.0 Baso # (Auto) 0.0 Abs Immat Gran (auto) 0.04 H Absolute Neuts (auto) 7.2 H Absolute Nucleated RBC 0.000 Nucleated RBC % 0.0 Membranes Rupture Rom plus negative RPR Non-reactive HIV 1&2 Ab/P24 Ag 4thGn Negative Blood Type A Positive Antibody Screen Negative Discharge Plan Discharge Discharging Clinician: Jackson Trinh Patient Disposition: Home, Self-Care Activity: as tolerated Diet: as tolerated Patient Instructions: Antibiotic Form Stand Alone Forms: General Discharge Information Follow-up/Referrals: Jackson Trinh MD [Physician] - 3 Weeks Discharge Medications: New ibuprofen 600 mg Tablet 600 mg PO Q6H PRN (Reason: Cramping) Qty: 30 0RF Continued 1 tab-cap PO DAILY (DME) Dexcom G6 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
--- NOTE | 2023-11-09 11:00 | PC.NURSE ---
Stopped by patient room to see if had woken to feed. Mom placed some drops of colostrum in baby's mouth about an hour previously, but baby never would latch. Mom was taking a break to give baby a little more time, and then began attempting again. Infant was latched to the [left] breast in [cross cradle] position. Mom said she had already fed well on the right breast and was now sleepy on the left breast. Baby was a little shallow so mom was shown how to compress the breast and work in some more tissue while baby suckles. Education given to the mother of how to visualize the suckling (with good rocking jaw motion). The was [able] to maintain latch without discomfort to mother. Mother voiced understanding of the education shared, to call for assistance if the does not latch or if there is discomfort with . Reported to the Primary RN.
[2023-11-09 12:20] VITALS: BP 117/74; PULSE 69; RESP 16; TEMP 36.7; O2SAT 100
[2023-11-10 11:29] VITALS: BP 105/79; PULSE 86; RESP 18; TEMP 36.8; O2SAT 99
== END 2023-11-09 15:30 | disposition home or self-care (01) | DRG 807 ==
LOC: ANHLDR 13:05 → ANHOB2 17:38
PROVIDERS: Admitting Provider Obstetrics & Gynecology; PCP Student in an Organized Health Care Education/Training Program; Visit Provider Obstetrics & Gynecology
DX: O24.420 Gestational diabetes mellitus in childbirth, diet controlled (principal); Z37.0 Single live birth; O69.2XX0 Labor and delivery complicated by other cord entanglement, with compression, not applicable or unspecified; Z3A.38 38 weeks gestation of pregnancy; Z87.891 Personal history of nicotine dependence
CPT/HCPCS: 36415; 84112; 85025; 86592; 86703; 86850; 86900; 86901; 90710; 90715; A9270; G0432; J2590; J2795; J7120